=== PATIENT | male | born 1980 | race Caucasian/White ===

== ENCOUNTER 2018-12-28 17:29 | Emergency (ER) | payer SELFPAY ==
[~2018-12-28] VITALS: Ht 190.5 cm; Wt 95.3 kg
[2018-12-28] MEDS ORDERED: FLUORESCEIN OPHTH TEST STRIP. OD ONE (18:30)
[2018-12-28] MEDS ORDERED: TETRACAINE 0.5% OPHTH SOLUTION 4ML BOTTLE. OD ONE (18:30)
[2018-12-28] MEDS: HYDROcodone/APAP 5/325MG 1 TAB TABLET PO ONE ×2 (19:19→22:00)
[2018-12-28 20:23] LABS: BASO # 0.1 x10^3/uL (0.0-0.2); BASO % 1 % (0-3); EOS # 0.2 x10^3/uL (0.0-0.7); EOS % 3 % (0-3); HEMATOCRIT 40.3 % (39.0-53.0); HEMOGLOBIN 13.8 g/dL (13.0-17.5); LYMPH % 29 % (24-48); MEAN CORPUSCULAR HEMOGLOBIN 32 pg (25-35); MEAN CORPUSCULAR HGB CONC 34 g/dL (31-37); MEAN CORPUSCULAR VOLUME 93 fL (79-100); MONO # 0.6 x10^3/uL (0.0-1.1); MONO % 9 % (0-9); NEUT % 58 % (31-73); PLATELET COUNT 190 x10^3/uL (140-400); RED BLOOD COUNT 4.32 x10^6/uL (4.30-5.70); RED CELL DISTRIBUTION WIDTH 14.3 % (11.5-14.5); WHITE BLOOD COUNT 6.9 x10^3/uL (4.0-11.0)
[2018-12-28 20:32] LABS: CALCIUM 8.4 mg/dL (8.5-10.1); CREATININE 1.1 mg/dL (0.7-1.3); GFR 74.9; POTASSIUM 4.3 mmol/L (3.5-5.1)
--- NOTE | 2018-12-28 20:38 | RAD ---
STUDY: CT orbits without contrast INDICATION: Rule out right periorbital cellulitis. Right eye pain and swelling. Possible foreign body. COMPARISON: None. TECHNIQUE: Axial CT imaging of the orbits performed without the use of intravenous contrast. Coronal and sagittal reformats were obtained. FINDINGS: Mild asymmetric prominence of the preseptal soft tissues on the right relative to the left. No well seen low-attenuation focus to suggest a drainable fluid collection. Symmetric appearance of both globes. No definite asymmetric fat stranding of the intraconal fat on the right relative to the left. Normal configuration of the optic nerves. No metallic foreign body seen. Rounded low-attenuation focus within the subcutaneous tissues overlying the right zygomatic arch, image 8 series 2, measures 8 x 8 mm. Symmetric fat planes of the deeper soft tissues of the imaged face. The osseous structures included in the [id number] are unremarkable. Mild bilateral maxillary sinus mucosal thickening. No discrete abnormality of the partially imaged intracranial structures. IMPRESSION: 1. Mild asymmetric prominence of the preseptal soft tissues on the right relative to the left which could represent periorbital cellulitis in the appropriate clinical setting. No drainable fluid collection or definite evidence for intraconal extension. No radiopaque foreign body seen. 2. Well-circumscribed low-attenuation focus within the subcutaneous tissues superficial to the right zygomatic arch measuring 8 x 8 mm. The appearance is nonspecific but could represent an inclusion cyst. Recommend correlation with direct inspection. Electronically signed by: ALLI NGUYEN MD (12/28/2018 8:35 PM) [facility]
[2018-12-28] MEDS ORDERED: AMOX500C PO (21:20)
[2018-12-28] MEDS ORDERED: ERYT1OIN6 RIGHTEYE (21:20)
[2018-12-28] MEDS ORDERED: HYDR-3164 PO (21:23)
--- NOTE | 2018-12-28 21:23 | PHYS DOC ---
Past Medical History Past Medical History: No Pertinent History Past Surgical History: No Surgical History Alcohol Use: Sober Drug Use: None Adult General Chief Complaint Chief Complaint: FOREIGN BODY/EYES HPI HPI Patient is a 38 year old , accompanied by his mother, who presents to the emergency department with a complaint of feeling something in his right eye, right eye pain, and right eyelid redness and swelling that developed today. Patient states that he thinks he may have scratched his eye yesterday while wo rking on a roof. Patient states he did wear safety glasses but he was rubbing his eyes when he were dirty. He reports mild blurred vision in the right eye due to excessive tearing. He denies any crusting or purulent drainage from the eye. He currently rates his pain as 7 out of 10 on the pain scale, closing his eyelid helps to reduce the pain, opening his eye increases the pain. ROS Patient denies any fever, cough, runny nose, sore throat, nausea, vomiting, diarrhea, abdominal pain, wheezing, or shortness of breath. He denies any headache, dizziness, numbness, or tingling. All other ROS is neg unless otherwise noted in HPI. Review of Systems Review of Systems See Above Current Medications Current Medications Current Medications Medications (Trade) Dose Ordered Sig/Harlan Start Time Stop Time Status Last Admin Dose Admin Acetaminophen/ Hydrocodone Bitart (Lortab 5/325) 1 tab 1X ONCE 12/28/18 19:00 12/28/18 19:03 DC Erythromycin (Romycin) 0.5 inch 1X ONCE 12/28/18 21:30 12/28/18 21:31 DC 12/28/18 22:00 0.5 INCH Fluorescein Sodium (Ful-Demi) 1 strip 1X ONCE 12/28/18 18:30 12/28/18 18:36 DC 12/28/18 18:51 1 STRIP Tetracaine HCl (Tetracaine) 1 drop 1X ONCE 12/28/18 18:30 12/28/18 18:36 DC 12/28/18 18:51 1 DROP Allergies Allergies Allergies Coded Allergies Type Severity Reaction Last Updated Verified No Known Drug Allergies 12/28/18 No Physical Exam Physical Exam See Above Constitutional: Well developed, well nourished, no acute distress, non-toxic appearance. [] HENT: Normocephalic, atraumatic, bilateral external ears normal, oropharynx moist, no oral exudates, nose normal. [] Eyes: PERRLA, EOMI, left eye conjunctiva normal, no discharge from left eye; right eye conjunctiva injected, watery discharge from right eye, erythema and 1+ edema noted to right upper eyelid Neck: Normal range of motion, no tenderness, supple, no stridor. [] Cardiovascular:Heart rate regular rhythm, no murmur [] Lungs & Thorax: Bilateral breath sounds clear to auscultation [] Skin: Warm, dry; erythema noted to R voodoo with mild TTP no palpable abscess Extremities: No cyanosis, no clubbing, ROM intact, no edema. [] Neurologic: Alert and oriented X 3, normal motor function, normal sensory function, no focal deficits noted. [] Psychologic: Affect normal, judgement normal, mood normal. [] Current Patient Data Vital Signs Vital Signs Date Time Temp Pulse Resp B/P (MAP) Pulse Ox O2 Delivery O2 Flow Rate FiO2 12/28/18 21:59 55 16 121/78 (92) 98 Room Air 12/28/18 18:28 98.2 98.2 Lab Values Laboratory Tests Test 12/28/18 20:11 White Blood Count 6.9 x10^3/uL (4.0-11.0) Red Blood Count 4.32 x10^6/uL (4.30-5.70) Hemoglobin 13.8 g/dL (13.0-17.5) Hematocrit 40.3 % (39.0-53.0) Mean Corpuscular Volume 93 fL (79-100) Mean Corpuscular Hemoglobin 32 pg (25-35) Mean Corpuscular Hemoglobin Concent 34 g/dL (31-37) Red Cell Distribution Width 14.3 % (11.5-14.5) Platelet Count 190 x10^3/uL (140-400) Neutrophils (%) (Auto) 58 % (31-73) Lymphocytes (%) (Auto) 29 % (24-48) Monocytes (%) (Auto) 9 % (0-9) Eosinophils (%) (Auto) 3 % (0-3) Basophils (%) (Auto) 1 % (0-3) Neutrophils # (Auto) 4.0 x10^3/uL (1.8-7.7) Lymphocytes # (Auto) 2.0 x10^3/uL (1.0-4.8) Monocytes # (Auto) 0.6 x10^3/uL (0.0-1.1) Eosinophils # (Auto) 0.2 x10^3/uL (0.0-0.7) Basophils # (Auto) 0.1 x10^3/uL (0.0-0.2) Sodium Level 141 mmol/L (136-145) Potassium Level 4.3 mmol/L (3.5-5.1) Chloride Level 106 mmol/L (98-107) Carbon Dioxide Level 31 mmol/L (21-32) Anion Gap 4 (6-14) L Blood Urea Nitrogen 12 mg/dL (8-26) Creatinine 1.1 mg/dL (0.7-1.3) Estimated GFR (Cockcroft-Gault) 74.9 Glucose Level 89 mg/dL (70-99) Lactic Acid Level 0.5 mmol/L (0.4-2.0) Calcium Level 8.4 mg/dL (8.5-10.1) L Laboratory Tests 12/28/18 20:11 Laboratory Tests 12/28/18 20:11 EKG EKG [] Radiology/Procedures Radiology/Procedures Using tetracaine and fluroscein the patient's eye was examined under Wood's lamp and an no area of uptake was noted Patient's ocular symptoms have stabilized while they have been evaluated in the department and are appropriate for outpatient work up. No evidence of ruptured globe, retinal detachment, acute angle closure glaucoma, or deep space infection. Plan for 24 hour ophthalmologic follow up. PROCEDURE: CT ORBITS WO CONTRAST STUDY: CT orbits without contrast INDICATION: Rule out right periorbital cellulitis. Right eye pain and swelling. Possible foreign body. COMPARISON: None. TECHNIQUE: Axial CT imaging of the orbits performed without the use of intravenous contrast. Coronal and sagittal reformats were obtained. FINDINGS: Mild asymmetric prominence of the preseptal soft tissues on the right relative to the left. No well seen low-attenuation focus to suggest a drainable fluid collection. Symmetric appearance of both globes. No definite asymmetric fat stranding of the intraconal fat on the right relative to the left. Normal configuration of the optic nerves. No metallic foreign body seen. Rounded low-attenuation focus within the subcutaneous tissues overlying the right zygomatic arch, image 8 series 2, measures 8 x 8 mm. Symmetric fat planes of the deeper soft tissues of the imaged face. The osseous structures included in the [id number] are unremarkable. Mild bilateral maxillary sinus mucosal thickening. No discrete abnormality of the partially imaged intracranial structures. IMPRESSION: 1. Mild asymmetric prominence of the preseptal soft tissues on the right relative to the left which could represent periorbital cellulitis in the appropriate clinical setting. No drainable fluid collection or definite evidence for intraconal extension. No radiopaque foreign body seen. 2. Well-circumscribed low-attenuation focus within the subcutaneous tissues superficial to the right zygomatic arch measuring 8 x 8 mm. The appearance is nonspecific but could represent an inclusion cyst. Recommend correlation with direct inspection.[] Course & Med Decision Making Course & Med Decision Making Pertinent Labs and Imaging studies reviewed. (See chart for details) dx: Right eye conjunctivitis CBC and BMP were within normal limits, vital signs are stable and patient is afebrile. CT orbits: 1. Mild asymmetric prominence of the preseptal soft tissues on the right relative to the left which could represent periorbital cellulitis in the appropriate clinical setting. No drainable fluid collection or definite evidence for intraconal extension. No radiopaque foreign body seen. 2. Well-circumscribed low-attenuation focus within the subcutaneous tissues superficial to the right zygomatic arch measuring 8 x 8 mm. The appearance is nonspecific but could represent an inclusion cyst. Recommend correlation with direct inspection. Pt was also evaluated by Dr. Owens. Most likely conjunctivitis than periorbital cellulitis, will treat for conjunctivitis with close follow up with Dr. Victor recommended. Pt was given a hydrocodone 5/325 mg tablet for pain control in ER and a first time does of erythromycin eye ointment. Prescription written for erythromycin eye ointment and hydrocodone. Return precautions given. Patient verbalized an understanding of home care, medications, follow-up, and return to ED instructions and was in agreement with the plan of care. [] Dragon Disclaimer Dragon Disclaimer This electronic medical record was generated, in whole or in part, using a voice recognition dictation system. Departure Departure Impression: Primary Impression: Acute conjunctivitis, right eye Disposition: 01 HOME, SELF-CARE Condition: STABLE Referrals: NO PCP (PCP) Yoli VICTOR MD Patient Instructions: Cellulitis, [id number], Conjunctivitis (Viral and Bacterial) Additional Instructions: Fill prescriptions and use as directed. Alternate tylenol and ibuprofen as needed for pain. Follow up with Dr. Victor tomorrow. Return to the ER if symptoms worsen or you develop a fever. Scripts Hydrocodone/Apap 5-325 (NORCO 5-325 TABLET) 1 Each Tablet 1 TAB PO PRN Q6HRS PRN for PAIN for 3 Days, #12 TAB 0 Refills Prov: DA WINTERS APRN 12/28/18 Erythromycin Base (Erythromycin) 1 Gm Oint...g. 0.5 INCH RIGHTEYE QID for 5 Days, #1 TUBE 0 Refills Prov: DA WINTERS APRN 12/28/18 Problem Qualifiers Primary Impression: Acute conjunctivitis, right eye Acute conjunctivitis type: unspecified Qualified Codes: H10.31 - Unspecified acute conjunctivitis, right eye DA WINTERS APRN Dec 28, 2018 21:23
[2018-12-28] MEDS ORDERED: ERYTHROMYCIN 0.5% OPHTH OINTMENT 1GM TUBE. OD ONE (21:30)
[2018-12-28 21:59] VITALS: BP 121/78
== END 2018-12-28 21:59 | disposition home or self-care (01) ==
LOC: ER 17:29
DX: H10.31 Unspecified acute conjunctivitis, right eye (principal)
CPT/HCPCS: 36415; 70480; 80048; 83605; 85025; 99285-25